=== PATIENT | female | born 1945 ===

== ENCOUNTER 2023-09-26 14:30 | Inpatient (IN) | payer MEDICARE ==
[~2023-09-26] VITALS: Ht 157.5 cm; Wt 76.1 kg
[2023-09-26 15:46] VITALS: BP 130/99
[2023-09-26 16:00] VITALS: BP 141/77
[2023-09-26] MEDS ORDERED: LISINOPRIL-HCT1 EACH PO (16:00)
[2023-09-26] MEDS ORDERED: Heparin Sodium,Porcine/0.5 NS 500 ML IV SCH (16:20)
--- NOTE | 2023-09-26 16:31 | NUR ---
ADMIT TO PCU 10 AT 1540. PATIENT ABLE TO STAND AND TRANSFER WITH SBA. UP TO BATHROOM WITH STAFF. DENIES NUMBNESS/TINGLING. IND AT BASELINE. PERRLA, GLASSES AND PHONE AT BEDSIDE. MOVING ALL EXTREMITIES WNL. TELE SHOWING SR WITH HR 70'S. SBP 130-140'S. DENIES CHEST PAIN/PRESSURE/PALPITATIONS AT THIS TIME. NO EDEMA NOTED. HEPARIN GTT INFUSING PER EMAR. DR. VELARDE AT BEDSIDE, THIS RN AT BEDSIDE FOR PROVIDER ROUNDING. NPO AT THIS TIME. ON ROOM AIR SATING ABOVE 95%. DENIES SOB/COUGH. LUNGS SOUNDING CLEAR AND DIM IN BASES. DENIES USING ANY OXYGEN OR CPAP/BIPAP AT BASELINE. EVEN AND UNLABORED RESPIRATIONS. RR 16-18. BOWEL TONES PRESENT. PATIENT UP TO BATHROOM WITH SBA TO VOID. PATIENT DENIES ISSUES VOIDING OR HAVING BOWEL MOVEMENTS AT BASELINE. LAST BOWEL MOVEMENT 09/25. NPO AT THIS TIME PER CARDIOLOGY. SKIN OVERALL C/D/I. 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 DENIES PAIN AT THIS TIME. STANDING WEIGHT OF 76.1 KG DONE ON ADMIT. SON DENISE UPDATED BY PATIENT AND ON WAY TO [facility]. MED REC COMPLETED, PATIENT REPORTS ONLY TAKING LISINOPRIL AT HOME. CALL LIGHT IN REACH. PATIENT DENIES NEEDS AT THIS TIME. FALL PRECAUTIONS IN PLACE.
[2023-09-26] MEDS ORDERED: Magnesium Hydroxide Conc 10 ML UDC PO PRN (16:35)
[2023-09-26] MEDS ORDERED: OxyCODONE HCL 5 MG TAB PO PRN (16:35)
[2023-09-26] MEDS ORDERED: TraZODone HCl 50 MG Tab PO PRN (16:35)
[2023-09-26] MEDS ORDERED: Ondansetron 4 MG TAB PO PRN (16:35)
[2023-09-26] MEDS ORDERED: Naloxone HCl 0.4MG / ML 1ML Vial IV PRN (16:35)
[2023-09-26] MEDS ORDERED: Bisacodyl 10 MG Supp PR PRN (16:40)
[2023-09-26] MEDS ORDERED: HYDROmorphone HCl/Pf 1MG SYR IV PRN (16:40)
[2023-09-26] MEDS ORDERED: FLU VACC QS2023-24(6MOS UP)/PF 60 MCG/0.5 ML SYRINGE IM ONE (16:40)
[2023-09-26] MEDS ORDERED: Acetaminophen 650 MG Supp PR PRN (16:40)
--- NOTE | 2023-09-26 16:54 | NUR ---
DR. GALVAN TO BEDSIDE FOR ADMISSION, THIS RN AT BEDSIDE FOR PROVIDER ROUNDING. BRIM PRESSER IN ROOM AT THIS TIME. LABS DRAWN. HEPARIN GTT INFUSING PER EMAR. DR. VELARDE BACK TO CONSENT FOR ANGIOGRAM ON 09/27 AM. ORDERS FOR NPO AT MIDNIGHT. ORDERS IN PLACE.
[2023-09-26 17:00] VITALS: BP 137/90
[2023-09-26] MEDS ORDERED: HydrALAZINE HCl 20 MG / ML 1ML Vial IV PRN (17:00)
[2023-09-26] MEDS ORDERED: Dose Adjust by Pharmacy XX STA (18:30)
[2023-09-26] MEDS ORDERED: Heparin Sodium 5000 Units/ML 1ML MDV IV ONE (18:35)
[2023-09-26 19:42] VITALS: BP 132/76
[2023-09-26] MEDS ORDERED: Famotidine 20 MG Tab PO SCH (21:00)
[2023-09-26] MEDS ORDERED: Lactobacil 2-S.Thermo-Bifido 1 1 Cap PO SCH (21:00)
[2023-09-26 23:55] VITALS: BP 137/77
[2023-09-27] VITALS (11 sets, daily range): BP systolic 99–132; BP diastolic 55–81
[2023-09-27 01:13] LABS: Hematocrit 40.4 % (33.0-51.0); Hemoglobin 13.3 g/dL (11.5-16.0); Mean Corpuscular HGB 29.2 pg (26.0-34.0); Mean Corpuscular HGB Conc 32.9 g/dL (31.5-36.5); Mean Corpuscular Volume 89 fL (80-100); Mean Platelet Volume 10.2 fL (9.1-12.4); Platelet Count 285 K/mm3 (150-400); RDW Coefficient Variation 12.7 % (11.7-14.2); RDW Standard Deviation 41.5 fL (35.1-46.3); Red Blood Cell Count 4.56 M/mm3 (3.80-5.20); White Blood Cell Count 10.19 K/mm3 (4.00-11.30)
--- NOTE | 2023-09-27 01:17 | NUR ---
PT HAD RUN OF SVT THAT LASTED APPROX 45 SECONDS. PT ASYMPTOMATIC. NOTIFIED
[2023-09-27 01:33] LABS: Albumin, Blood 3.2 g/dL (3.4-5.0); Bilirubin, Total 0.9 mg/dL (0.1-1.0); Bun/Creatinine Ratio 16.4 (12.0-20.0); Calcium, Blood 8.8 mg/dL (8.5-10.1); Creatinine, Blood 0.85 mg/dL (0.40-1.00); Globulin, Blood 3.3 g/dL (2.2-4.0); Potassium, Blood 3.7 mmol/L (3.5-5.5); Total Protein, Blood 6.5 g/dL (6.4-8.2)
--- NOTE | 2023-09-27 04:39 | NUR ---
END OF SHIFT NOTE: PT A/OX4, USES CALL LIGHT APPROPRIATELY TO MAKE NEEDS KNOWN. PT ABLE TO AMBULATE TO BATHROOM WITH FWW. PT DENIES CHEST PAIN OR PRESSURE. HEPARING RUNNING T/O SHIFT PER EMAR. VSS, PT DENIES NEEDS AT THIS TIME. CALL LIGHT IN REACH, BED IN LOWEST POSITION. WILL REPORT TO ONCOMING RN.
[2023-09-27] MEDS ORDERED: FentaNYL Citrate 50 MCG/ML 2 ML Injection ONE (08:10)
[2023-09-27] MEDS ORDERED: Midazolam HCl 1MG / ML 2ML Vial ONE (08:10)
[2023-09-27] MEDS ORDERED: Heparin Sodium 1000 Units/ML 10ML MDV ONE ×2 (08:11→08:24)
[2023-09-27] MEDS ORDERED: NS 1,000 ML IV ONE ×2 (08:11→08:24)
[2023-09-27] MEDS ORDERED: Dose Adjust by Pharmacy XX STA (08:23)
[2023-09-27] MEDS ORDERED: Nitroglycerin 2 MG/20 ML BTL ONE (08:24)
[2023-09-27] MEDS ORDERED: NiCARdipine HCL 1,000 MCG/5 ML SYR ONE (08:24)
[2023-09-27] MEDS ORDERED: NS 250 ML IV ONE (08:24)
--- NOTE | 2023-09-27 08:37 | NUR ---
AM NOTE: PATIENT ALERT AND ORIENTED X4. UP TO RECLINER THIS AM. SBA TO BATHROOM. DENIES NUMBNESS/TINGLING. MOVING ALL EXTREMITIES WNL. DENIES OVERALL PAIN. TELE SHOWING SR WITH HR 70-80'S. SBP 120'S. NPO AT THIS TIME, PLAN FOR ANGIO THIS MORNING AND PATIENT TAKEN TO DUSTER TENDER AT 0835. HEPARIN GTT PAUSED BY DUSTER TENDER RN PRIOR TO TRANSFERRING TO [facility]. THIS RN UPDATED PHARMACY. NO EDEMA NOTED. DENIED CHEST PAIN/PRESSURE. ON ROOM AIR SATING ABOVE 95%. DENIES SOB/COUGH. LUNGS SOUNDING CLEAR THROUGHOUT. EVEN AND UNLABORED RESPIRATIONS. BOWEL TONES PRESENT. NPO THIS AM. VOIDING WNL. DENIES ABDOMINAL PAIN/NAUSEA. SKIN OVERALL C/D/I. SON DENISE AT BEDSIDE AND UPDATED BY THIS RN. PATIENT STATES SHE WAS FEELING A LITTLE ANXIOUS THIS MORNING PRIOR TO ANGIO.
[2023-09-27] MEDS ORDERED: Aspirin 81 MG Chew PO SCH (09:00)
[2023-09-27] MEDS ORDERED: Ticagrelor 90 MG TABLET ONE ×2 (09:20→09:23)
[2023-09-27] MEDS ORDERED: Metoprolol Succinate 25 MG TABCR PO SCH (12:00)
[2023-09-27] MEDS ORDERED: ATOR80 PO (12:59)
[2023-09-27] MEDS ORDERED: ASPI81CH PO (12:59)
[2023-09-27] MEDS ORDERED: METO25ER PO (12:59)
[2023-09-27] MEDS ORDERED: BRILINTA PO (12:59)
--- NOTE | 2023-09-27 15:04 | NUR ---
DISCHARGE: NO ACUTE CHANGES. TR BAND RECOVERED AND SITE WNL. THIS RN REVIEWED ALL RADIAL PRECAUTIONS WELL STENT CARD, CARDIAC REHAB FOLLOW UP, CARDIOLOGY FOLLOW UP, PCP FOLLOW UP AND ALL NEW MEDICATIONS WELL SIGNS AND SYMPTOMS OF WHEN TO RETURN. PATIENT LEFT UNIT WITH ALL PERSONAL BELONGINGS INCLUDING DISCHARGE PACKET AND STENT CARD.
[2023-09-27] MEDS ORDERED: Ticagrelor 90 MG TABLET PO SCH (20:00)
[2023-09-28] MEDS ORDERED: Metoprolol Succinate 25 MG TABCR PO SCH (09:00)
[2023-09-28] MEDS ORDERED: Atorvastatin 40 MG Tab PO SCH (09:00)
== END 2023-09-27 15:02 | disposition home or self-care (01) | DRG 322 ==
LOC: PCU 15:55
PROVIDERS: ADMIT Hospitalist
PROC: 027034Z Dilation of Coronary Artery, One Artery with Drug-eluting Intraluminal Device, Percutaneous Approach (ICD-10-PCS; principal; 2023-09-27)
PROC: B2111ZZ Fluoroscopy of Multiple Coronary Arteries using Low Osmolar Contrast (ICD-10-PCS; 2023-09-27)
PROC: 4A023N7 Measurement of Cardiac Sampling and Pressure, Left Heart, Percutaneous Approach (ICD-10-PCS; 2023-09-27)
DX: I21.4 Non-ST elevation (NSTEMI) myocardial infarction (principal); I10 Essential (primary) hypertension; I25.10 Atherosclerotic heart disease of native coronary artery without angina pectoris; Z90.710 Acquired absence of both cervix and uterus; Z79.811 Long term (current) use of aromatase inhibitors
CPT/HCPCS: 36415; 76937; 80053; 84484; 85027; 85347; 85730; 93306; 93454; 94762; 99152; 99153; A9270; C1725; C1769; C1874; C1887; C1894; C9600; J1644; J2250; J3010; J7030; J7050; Q9967